=== PATIENT | female | born 1990 | race African-American/Black ===

== ENCOUNTER 2017-10-29 11:02 | Emergency (ER) | payer OTHER ==
[~2017-10-29] VITALS: Ht 157.5 cm; Wt 86.2 kg
[2017-10-29] MEDS ORDERED: ALBUTEROL/IPRATROPIUM 3 ML NEB NEB ONE (11:30)
[2017-10-29] MEDS ORDERED: IBUPROFEN 400 MG TAB PO ONE (13:15)
[2017-10-29 13:33] VITALS: BP 132/72
== END 2017-10-29 13:35 | disposition home or self-care (01) ==
LOC: FSED 11:02
DX: R07.89 Other chest pain (principal); R06.02 Shortness of breath; R05 Cough; J45.40 Moderate persistent asthma, uncomplicated
CPT/HCPCS: 71046; 80053; 81003; 81025; 82553; 84484; 85025; 93005; 99284